=== PATIENT | male | born 1995 | race Caucasian/White ===

== ENCOUNTER 2017-04-10 23:19 | Emergency (ER) | payer SELFPAY ==
[~2017-04-10] VITALS: Ht 185.4 cm; Wt 90.7 kg
== END 2017-04-11 00:40 | disposition short-term general hospital (02) ==
LOC: ER 23:19
DX: J06.9 Acute upper respiratory infection, unspecified (principal); F17.210 Nicotine dependence, cigarettes, uncomplicated